=== PATIENT | female | born 2000 | race Caucasian/White ===

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

== ENCOUNTER 2022-10-28 12:43 | Emergency (ER) | payer OTHER, SELFPAY ==
--- OUTSIDE RECORDS SUMMARY | 2022-10-28 12:45 | XMS REPORT | Continuity of Care Document ---
:2000 Author Organization [facility] t Address [address] [facility] [place] [address] Care Team Providers Name Role Phone Keanu Frankel Attending Clinician Unavailable Dorita Ricketts Attending Clinician Unavailable Doctor Unassigned, [place] Attending Clinician Unavailable Alfonso Castle Attending Clinician ALFONSO FERGUSON Attending Clinician Unavailable Payers Payer Name Policy Type Policy Number Effective Date Expiration Date S ource GROUP & PENSION C1 [id number] Common [employer] Spirit - [facility] Problems Condition Condition Condition Status Onset Resolution Last Treating Co mments Source Name Details Category Date Date Treatment Clinician Date [id number] Irregular Problem Active Comm on menstrual Spirit cycle - [facility] [id number] Depression Problem Active Co mmon with Spirit anxiety - [facility] [id number] Generalize Problem Active Com mon d anxiety Spirit disorder - [facility] [id number] Encounter Problem Active Com mon for Spirit surveillan - [facility]I ce of [facility] injectable [facility] contracept [facility] [id number] Encounter Problem Active Com mon for Spirit initial - CHI prescripti [facility] on of [facility] transderma Medica l l patch Center hormonal contracept sigrid device [id number] Uses Problem Active Common contracept Spirit sigrid - [facility] implant [facility] for [facility] Allergies, Adverse Reactions, Alerts Allergy Allergy Status Severity Reaction(s) Onset Inactive Treating Comm ents Source Name Type Date Date Clinician NO KNOWN Drug Active Univers ALLERGIE Class ity of S [facility] Social History Social Habit Start Date Stop Date Quantity Comments Source Sex Assigned At Common [facility] Exposure to Not sure [facility] SARS-CoV-2 (event) [facility] History of Tobacco Never Smoker Comm on [facility] Smoking Status Start Date Stop Date Source Unknown if ever smoked General acute hospital Never Smoker Common [facility] Medications Ordered Filled Start Stop Current Ordering Indication Dosage Frequency Signature Comments Components Source Medication Medication Date Date Medication? Clinician (SIG) Name Name meloxicam 2019-03 Yes [id number] 7.5mg Take 1 Univers 7.5 mg 1-12 [id number] tablet by ity of tablet 00:00: mouth [place] daily. [facility] meloxicam 2019-03 Yes [id number] 7.5mg Take 1 Univers 7.5 mg 1-12 [id number] tablet by ity of tablet 00:00: mouth [place] daily. [facility] meloxicam 2019-03 Yes [id number] 7.5mg Take 1 Univers 7.5 mg 1-12 [id number] tablet by ity of tablet 00:00: mouth daily. [facility] PARoxetine 2019-03 Yes TK 1 T PO Un shaqu[place] 10 mg 0-26 QD FOR 45 ity of tablet 00:00: [place] [facility] PARoxetine 2019-03 Yes TK 1 T PO Un [place] 10 mg 0-26 QD FOR 45 ity of tablet 00:00: [place] [facility] PARoxetine 2019-03 Yes TK 1 T PO Un [place] 10 mg 0-26 QD FOR 45 ity of tablet 00:00: [place] [facility] Paroxetine Paroxetine 2019-03 No 1{table QD Paroxetine HCl 10 MG HCl 10 MG 0-26 t} HCl 10 MG 00:00: 00 Abdirashid [place] 2018-0 Yes Dorita 1 patch to Co mmon 7-16 [place] skin Spirit 00:00: [facility] Nexplanon Nexplanon Yes Dorita not Comm on Millender defined [facility] Paroxetine Paroxetine Yes Dorita 1 tablet Common HCl HCl Millender in the [facility] Nexplanon Nexplanon No Nexplanon Immunizations Ordered Immunization Filled Immunization Date Status Commen ts Source Name Name Meningoccal MCV4 Meningoccal MCV4 2019-05- Completed Co mmon Spirit - 09:28:00 [facility] Meningoccal MCV4 Meningoccal MCV4 2019-05- Completed Co mmon 06 Spirit - 00:00:00 [facility] medroxyprogesterone ac medroxyprogesterone ac 2018-07- Completed Common Spirit - 15:51:00 [facility] medroxyprogesterone ac medroxyprogesterone ac 2018-05- Completed Common Spirit - 15:38:00 [facility] medroxyprogesterone ac medroxyprogesterone ac 2018-01- Completed Common Spirit - 08:57:00 [facility] medroxyprogesterone ac medroxyprogesterone ac 2017-10- Completed Common Spirit - 09:45:00 [facility] medroxyprogesterone ac medroxyprogesterone ac 2017-07- Completed Common Spirit - 15:10:00 [facility] Vital Signs Vital Name Observation Time Observation Value Comments Source Heart rate 2020-02-10 20:38:00 80 /min [facility] Respiratory rate 2020-02-10 20:38:00 20 /min [facility] Body height 2020-02-10 20:38:00 160 cm [facility] Body weight 2020-02-10 20:38:00 57.607 kg [facility] BMI 2020-02-10 20:38:00 22.50 kg/m2 [facility] Systolic blood 2020-02-10 20:38:00 112 mm[Hg] Univer sity of pressure [facility] Diastolic blood 2020-02-10 20:38:00 72 mm[Hg] Unive rsity of pressure [facility] Heart rate 2020-02-10 20:38:00 80 /min [facility] Respiratory rate 2020-02-10 20:38:00 20 /min [facility] height 2020-02-10 20:38:00 160 cm [facility] Body weight 2020-02-10 20:38:00 57.607 kg [facility] Branch BMI 2020-02-10 20:38:00 22.50 kg/m2 Universi ty [facility] Systolic blood 2020-02-10 20:38:00 112 mm[Hg] Univer sity of pressure [facility] Diastolic blood 2020-02-10 20:38:00 72 mm[Hg] Unive rsity of pressure [facility] height 2020-01-24 10:20:00 63 [in_i] Common [facility] weight 2020-01-24 10:20:00 127.8 [lb_av] Common [facility] temperature 2020-01-24 10:20:00 97.9 [degF] [facility] bmi 2020-01-24 10:20:00 22.64 kg/m2 [facility] oximetry 2020-01-24 10:20:00 99 % [facility] respiratory rate 2020-01-24 10:20:00 18 /min Comm on [facility] blood pressure 2020-01-24 10:20:00 105 mm[Hg] Common [facility] systolic [facility] blood pressure 2020-01-24 10:20:00 58 mm[Hg] Common [facility] diastolic [facility] Procedures Procedure Date / Time Performed Performing Clinician [facility] e EXTERNAL PROVIDER 2020-02-17 06:01:00 Doctor Unassigned, No Univ [facility] RECORDS Name Medical Branch Encounters Start End Encounter Admission Attending Care Care Encounter Source Date/Time Date/Time Type Type Clinicians Facility Department ID 2021-04-25 [facility] Common 13:55:29 Keanu [id number] [facility] 2021-04-25 Outpatient Frankel, STLMLC STLC [id number] Common 13:49:02 Keanu [id number] [facility] 2021-04-25 Outpatient Frankel, STLMLC STLC [id number] Common 12:46:58 Keanu [id number] [facility] 2021-04-25 [facility] Common 12:46:33 Keanu [id number] [facility] 2021-04-25 Outpatient Frankel, STLMLC STLMLC [id number] Common 12:46:13 Keanu [id number] [facility] 2021-04-25 Outpatient Frankel, STLMLC STLMLC [id number] Common 12:34:38 Keanu [id number] [facility] 2021-04-25 Outpatient STLMLC STLMLC [id number] Common 11:58:38 [id number] [facility] 2021-04-25 Outpatient Millender, STLMLC STLMLC [id number] Common 11:58:26 Dorita 52684 [facility] 2021-04-25 Outpatient Millender, STLMLC STLMLC [id number] Common 11:04:45 Dorita 29514 [facility] 2021-04-25 Outpatient Millender, STLMLC STLMLC [id number] Common 10:59:37 Dorita 35593 [facility] 2020-05-01 2020-05-01 Outpatient COH CO[facility] PDPFFPJ [facility]W COH 00:00:00 00:00:00 [id number] 2020-02-17 2020-02-17 Orders Doctor KRISTEN [id number] [facility] 00:00:00 00:00:00 Only Unassigned, DANIELLE [id number] ity of [place] [facility] [id number] Chaka as [id number] [address] 2020-02-17 2020-02-17 Orders Doctor KRISTEN [id number] 00:00:00 00:00:00 Only Unassigned, DANIELLE [id number] [place] [facility] [id number] [facility] 2020-02-10 2020-02-10 Office ERVIN Ferguson [id number] [facility] 14:28:24 14:43:24 Visit [facility] [id number] it y of Surgical [id number] Chaka as Specialti [id number] Md dical 198 [facility] 2020-02-10 2020-02-10 [facility] [id number] 14:28:24 14:43:24 Visit Alfonso [facility] [id number] Surgical [id number] Specialti [id number] [address] [place] 2020-02-10 2020-02-10 [facility] [id number] Univers 14:30:00 14:30:00 [facility] 2020-01-24 2020-01-24 [facility] [id number] Co mmon 00:00:00 00:00:00 VISIT EST Spir it PT LEVEL 3 - [facility] 2019-05-06 2019-05-06 [id number] Common 09:00:00 09:00:00 t [facility] Spir it Road [facility] 2019-05-03 2019-05-03 [facility] [id number] Common 11:15:00 11:15:[address] [facility] [address] Spir it Road [facility] 2019-04-09 2019-04-09 [facility] [id number] Common 08:45:00 08:45:00 t [facility] [address] Spir it Road [facility] 2019-04-06 2019-04-06 [facility] [id number] Common 10:45:00 10:45:00 t [facility] [address] Spir it Road [facility] 2019-03-01 2019-03-01 [facility] [id number] Common 09:00:00 09:00:00 t [facility] [address] Spir it Road [facility] 2018-12-30 2018-12-30 [facility] [id number] Common 14:45:00 14:45:00 t [facility] 2018-12-04 2018-12-04 [facility] [id number] Common 09:15:00 09:15:00 t [facility] 2018-10-13 2018-10-13 [facility] [id number] Common 11:15:00 11:15:00 [facility] 2018-10-12 2018-10-12 [facility] [id number] Common 11:45:00 11:45:00 [facility] 2018-08-03 2018-08-03 [facility] [id number] Common 15:30:00 15:30:00 t [facility] 2018-05-01 2018-05-01 [facility] [id number] Common 15:30:00 15:30:00 t [facility] Care [facility] 2017-10-29 2017-10-29 [facility] [id number] Common 10:00:00 10:00:00 t [facility] 2017-07-31 2017-07-31 [facility] [id number] Common 15:30:00 15:30:00 t [facility] - [facility] 2017-07-28 2017-07-28 [facility] [id number] Common 14:30:00 14:30:00 t [facility] Sp[facility] it [facility] - [facility] Results This patient has no known results.
[2022-10-28] MEDS ORDERED: KETOROLAC 30 MG/ML INJ ONE (13:16)
--- NOTE | 2022-10-28 13:30 | RAD REPORT ---
EXAM DESCRIPTION: RAD - Chest Pa And Lat (2 Views) - 10/28/2022 1:24 pm CLINICAL HISTORY: CHEST PAIN COMPARISON: Chest Single View dated 04/19/2020; Chest Pa And Lat (2 Views) dated 07/05/2019 FINDINGS: Lines: None. Lungs: No evidence of edema or pneumonia. Pleural: No significant pleural effusions or pneumothorax. Cardiac: The heart size is within normal limits. Mediastinum: Within normal limits. Bones: No acute fractures. Other: None IMPRESSION: No acute cardiopulmonary disease.
--- NOTE | 2022-10-28 13:49 | EDPHYS ---
Physician Documentation [facility] Name: Lisset Magana Age: 22 yrs Sex: Female : 2000 Arrival Date: 10/28/2022 Time: 12:43 Bed 9 Private MD: ED Physician Espinoza Melendez HPI: 10/28 13:20 This 22 yrs old Female presents to ER via Ambulatory with complaints of Congestion, rt Chest Pressure, Nausea. 13:20 Patient presents to the ED with cough, congestion, chest pain. Patient states that her rt chest pain is worse with coughing, deep breaths. She reports mild difficulty breathing. Reports a sore throat. Denies other acute complaints at this time. Symptoms are mild severity, no other aggravating alleviating factors. Historical: - Allergies: 12:57 Eggs; cm10 - PMHx: 12:57 Anxiety; Seizures; cm10 - Immunization history:: Adult Immunizations unknown. - Social history:: Smoking status: Patient denies any tobacco usage or history of. - Family history:: not pertinent. ROS: 13:20 Constitutional: Negative for fever, chills, and weight loss, Abdomen/GI: Negative for rt abdominal pain, nausea, vomiting, diarrhea, and constipation, MS/Extremity: Negative for injury and deformity, Skin: Negative for injury, rash, and discoloration, Neuro: Negative for headache, weakness, numbness, tingling, and seizure, Psych: Negative for depression, anxiety, suicide ideation, homicidal ideation, and hallucinations. 13:20 ENT: Positive for rhinorrhea, sore throat. 13:20 Cardiovascular: Positive for chest pain, Negative for edema. 13:20 Respiratory: Positive for cough, shortness of breath. Exam: 13:20 Constitutional: This is a well developed, well nourished patient who is awake, alert, rt and in no acute distress. Head/Face: Normocephalic, atraumatic. Chest/axilla: Normal chest wall appearance and motion. Nontender with no deformity. No lesions are appreciated. Cardiovascular: Regular rate and rhythm with a normal S1 and S2. No gallops, murmurs, or rubs. Normal PMI, no JVD. No pulse deficits. Respiratory: Lungs have equal breath sounds bilaterally, clear to auscultation and percussion. No rales, rhonchi or wheezes noted. No increased work of breathing, no retractions or nasal flaring. Abdomen/GI: Soft, non-tender, with normal bowel sounds. No distension or tympany. No guarding or rebound. No evidence of tenderness throughout. Skin: Warm, dry with normal turgor. Normal color with no rashes, no lesions, and no evidence of cellulitis. MS/ Extremity: Pulses equal, no cyanosis. Neurovascular intact. Full, normal range of motion. Neuro: Awake and alert, GCS 15, oriented to person, place, time, and situation. Cranial nerves II-XII grossly intact. Motor strength 5/5 in all extremities. Sensory grossly intact. Cerebellar exam normal. Normal gait. Psych: Awake, alert, with orientation to person, place and time. Behavior, mood, and affect are within normal limits. 13:20 ENT: Mild posterior pharyngeal erythema without exudates, tonsillar hypertrophy.. 13:20 Neck: Mild anterior cervical lymphadenopathy present trachea is midline. 13:20 ECG was reviewed by the Attending Physician. Vital Signs: 12:55 BP 139 / 108; Pulse 74; Resp 18; Temp 98.8; Pulse Ox 100% ; Weight 60.78 kg; Height 5 cm10 ft. 2 in. ; 12:55 Body Mass Index 24.51 (60.78 kg, 157.48 cm) cm10 MDM: 12:54 Patient medically screened. rt 13:51 Differential diagnosis: Pneumonia, pneumothorax, URI, pulm embolism. Data reviewed: rt vital signs, nurses notes, EKG, radiologic studies. Independent interpretation of the following test(s) in the Emergency Department X-Ray: My interpretation is No consolidation seen on interpretation of the chest x-ray images. Test considered but Not performed: Labs: Stable vital signs, symptoms or not consistent with a cardiac etiology. Offered patient COVID testing, she declines it at this time. Labs not indicated. CT: Low suspicion for PE, PE RC negative, CT angiogram not indicated to rule out pulmonary embolism. Counseling: I had a detailed discussion with the patient and/or guardian regarding: the historical points, exam findings, and any diagnostic results supporting the discharge/admit diagnosis, radiology results, the need for outpatient follow up, to return to the emergency department if symptoms worsen or persist or if there are any questions or concerns that arise at home. 10/28 12:59 Order name: Chest Pa And Lat (2 Views) XRAY; Complete Time: 13:30 rt 10/28 12:59 Order name: EKG; Complete Time: 12:59 rt 10/28 12:59 Order name: EKG - Nurse/Tech; Complete Time: 13:04 rt EC:20 Rate is 83 beats/min. Rhythm is regular, Normal Sinus Rhythm with No ectopy. QRS [place] rt is Normal. FL interval is normal. QRS interval is normal. QT interval is normal. No Q waves. T waves are Normal. No ST changes noted. Interpreted by me. Administered Medications: 13:09 Drug: Ketorolac IM 15 mg Route: IM; Site: right gluteus; cm10 Disposition Summary: 10/28/22 13:48 Discharge Ordered Location: Home rt Problem: new rt Symptoms: have improved rt Condition: Stable rt Diagnosis - Acute upper respiratory infection, unspecified rt Followup: rt - With: Private Physician - When: 2 - 3 days - Reason: Discharge Instructions: - Discharge Summary Sheet rt - Viral Respiratory Infection rt Forms: - Work release form jl7 - Medication Reconciliation Form rt - Thank You Letter rt - Antibiotic Education rt - Prescription Opioid Use rt - Patient Portal Instructions rt Signatures: Dispatcher [employer] Espinoza Storm MD MD rt Hannah Lewis RN RN cm10
--- NOTE | 2022-10-28 13:49 | ER ---
Nurse's Notes [facility] Name: Lisset Magana Age: 22 yrs Sex: Female : 2000 Arrival Date: 10/28/2022 Time: 12:43 Bed 9 Private MD: Diagnosis: Acute upper respiratory infection, unspecified Presentation: 10/28 12:55 Chief complaint: Patient states: she woke up yesterday with congestion and sore throat. cm10 Pt states that this morning she started having chest pressure that is worse with deep breath. Coronavirus screen: Client denies travel out of the [place] in the last 14 days. Ebola Screen: Patient denies travel to an Ebola-affected area in the 21 days before illness onset. No symptoms or risks identified at this time. Resp Distress? No respiratory distress is noted at this time. Initial Sepsis Screen: Does the patient meet any 2 criteria? No. Patient's initial sepsis screen is negative. Does the patient have a suspected source of infection? No. Patient's initial sepsis screen is negative. Risk Assessment: Do you want to hurt yourself or someone else? Patient reports no desire to harm self or others. Onset of symptoms was October 28, 2022. 12:55 Method Of Arrival: Ambulatory cm10 12:55 Acuity: TETE 4 cm10 Historical: - Allergies: 12:57 Eggs; cm10 - PMHx: 12:57 Anxiety; Seizures; cm10 - Immunization history:: Adult Immunizations unknown. - Social history:: Smoking status: Patient denies any tobacco usage or history of. - Family history:: not pertinent. Vital Signs: 12:55 BP 139 / 108; Pulse 74; Resp 18; Temp 98.8; Pulse Ox 100% ; Weight 60.78 kg; Height 5 cm10 ft. 2 in. ; 12:55 Body Mass Index 24.51 (60.78 kg, 157.48 cm) cm10 ED Course: 12:46 Patient arrived in ED. am2 12:52 Espinoza Melendez MD is Attending Physician. rt 12:56 Triage completed. cm10 12:58 Arm band placed on. cm10 13:26 Chest Pa And Lat (2 Views) XRAY In Process Unspecified. EDMS 13:53 Florence Pabon RN is Primary Nurse. jl7 13:55 No provider procedures requiring assistance completed. Patient did not have IV access jl7 during this emergency room visit. Administered Medications: 13:09 Drug: Ketorolac IM 15 mg Route: IM; Site: right gluteus; cm10 Outcome: 13:48 Discharge ordered by . rt 13:55 Discharged to home ambulatory. jl7 13:55 Condition: stable 13:55 Discharge instructions given to patient, Instructed on discharge instructions, follow up and referral plans. Demonstrated understanding of instructions, follow-up care. 13:55 Patient left the ED. jl7 Signatures: Dispatcher [employer] EDFlorence Lowe RN RN jl7 Senia Hu am2 Espinoza Melendez MD MD rt Hannah Lewis RN RN cm10
[2022-10-28 14:12] VITALS: BP 139/108; TEMP 98.8; O2SAT 100
--- NOTE | 2022-10-30 17:42 | EKG ---
Test Date: 2022-10-28 Test Time: 13:04:48 Invoice Checker: DEMI MEASUREMENT RESULTS: Intervals: Rate: 83 NC: 154 QRSD: 82 QT: 360 QTc: 423 [place]: P: 54 NC: 154 QRS: 63 T: 38 INTERPRETIVE STATEMENTS: Normal sinus rhythm with sinus arrhythmia Normal ECG No previous ECG available for comparison Electronically Signed On 10-30-22 17:35:44 CDT by Alexandru Mata
== END 2022-10-28 13:55 | disposition home or self-care (01) ==
LOC: ER 12:43
DX: J06.9 Acute upper respiratory infection, unspecified (principal)
CPT/HCPCS: 71046; 93005; 96372; 99284